=== PATIENT | male | born 1990 | race Caucasian/White ===

== ENCOUNTER → 2017-01-18 | Outpatient (CLI) | payer BC ==
[2017-01-18 16:51] LABS: HIV ANTIBODY NEGATIVE (N); HIV-1 P24 ANTIGEN NEGATIVE (N)
== END ==
LOC: MOB LAB 15:10
PROVIDERS: ATTEND Physician Assistant
DX: N48.89 Other specified disorders of penis (principal)
CPT/HCPCS: 86695; 86696; 86703; 86780; 87491; 87591